=== PATIENT | male | born 1975 | race Caucasian/White ===

== ENCOUNTER 2021-05-01 17:12 | Emergency (ER) | payer OTHER ==
[2021-05-01 17:32] VITALS: BP 129/77; PULSE 91; TEMP 98.9; BMI 29.5
== END 2021-05-01 20:15 | disposition home or self-care (01) ==
LOC: JER 17:12
DX: J06.9 Acute upper respiratory infection, unspecified (principal)
CPT/HCPCS: 87804; 99283-25

== ENCOUNTER 2022-01-26 17:24 | Emergency (ER) | payer OTHER ==
[2022-01-26 17:58] VITALS: BP 138/76; PULSE 87; TEMP 98.6; BMI 31.9
== END 2022-01-26 22:46 | disposition home or self-care (01) ==
LOC: JER 17:24
DX: I10 Essential (primary) hypertension (principal)
CPT/HCPCS: 93005; 93010; 99283-25